=== PATIENT | male | born 1975 | race Caucasian/White ===

== ENCOUNTER 2017-02-13 09:56 | Emergency (ER) | payer BC, OTHER ==
[2017-02-13 10:05] VITALS: BP 141/87
--- NOTE | 2017-02-13 10:40 | UC ---
Dizzy HPI HPI Summary: PT WOKE UP IN USUAL STATE OF HEALTH TODAY. WHILE AT WORK STARTED FEELING LIGHTHEADED AND LIKE HIS HEART WAS RACING. WENT TO [facility] THINKING IT WAS HIS LUNGS. ONCE THERE THEY FOUND HIM TO BE TACHYCARDIC IN THE 120 AND BROUGHT HIM HERE TO . PT DENIES CAFFEINE INTAKE OR UNUSUAL STRESS. SLEPT WELL LAST NIGHT AND HAS HYDRATED WELL THIS MORNING. FEELS FATIGUED. - History Of Current Complaint Chief Complaint: UCGeneralIllness Stated Complaint: LIGHT HEADED Time Seen by Provider: 02/13/17 10:07 Hx Obtained From: Patient Onset/Duration: Sudden Onset, Lasting Hours Timing: Constant Pain Intensity: 0 Pain Scale Used: 0-10 Numeric Character: Lightheaded Aggravating Factor(s): Nothing Alleviating Factor(s): Nothing Associated Signs And Symptoms: Positive: Palpitations. Negative: Nausea, Vomiting, Chest Pain, SOB, Unsteady Gait, Visual Changes - Allergies/Home Medications Allergies/Adverse Reactions: Allergies Allergy/AdvReac Type Severity Reaction Status Date / Time Cat Hair Extract Allergy Eyes Verified 02/13/17 10:05 Itchy/Swollen/Red/Watery Pollen Extract Allergy Eyes Verified 02/13/17 10:05 Itchy/Swollen/Red/Watery Home Medications: Home Medications Albuterol HFA INHALER* [Ventolin HFA Inhaler*] 1 puff INH Q4H PRN 02/13/17 [ History Confirmed 02/13/17] Budesonide/Formote 160/4.5(NF) [Symbicort 160/4.5 (NF)] 2 puff INH BID 02/13/17 [History Confirmed 02/13/17] Levocetirizine Dihydrochloride [Xyzal Allergy 24Hr] 5 mg PO 02/13/17 [History] Mometasone NASAL (NF) [Nasonex (NF)] 1 spray .SEE ORDER 02/13/17 [History] PMH/Surg Hx/FS Hx/Imm Hx - Additional Past Medical History Additional PMH: SLEEP APNEA Respiratory History: Asthma GI/ History: Gastroesophageal Reflux - Surgical History Surgical History: Yes Surgery Procedure, Year, and Place: APPY AT AGE 4 - Family History Known Family History: Positive: Cardiac Disease, Diabetes - Social History Alcohol Use: None Substance Use Type: None Smoking Status (MU): Never Smoked Tobacco Review of Systems Constitutional: Fatigue Respiratory: Negative Cardiovascular: Palpitations Gastrointestinal: Negative All Other Systems Reviewed And Are Negative: Yes Physical Exam Triage Information Reviewed: Yes Appearance: Well-Appearing, No Pain Distress, Well-Nourished Vital Signs: Initial Vital Signs Temp 98.8 F 02/13/17 09:59 Pulse 98 02/13/17 09:59 Resp 18 02/13/17 09:59 BP 141/87 02/13/17 09:59 Pulse Ox 98 02/13/17 09:59 Vital Signs Reviewed: Yes Eyes: Positive: Conjunctiva Clear ENT: Positive: Hearing grossly normal Neck: Positive: Supple Respiratory Exam: Normal Cardiovascular: Positive: Tachycardia Abdomen Description: Positive: Soft Musculoskeletal: Positive: No Edema Neurological: Positive: Alert Psychological: Positive: Age Appropriate Behavior Skin: Negative: rashes Diagnostics - EKG Cardiac Rate: Tachycardia - 109 BPM Cardiac Rhythm: Sinus: Normal Ectopy: PVCs ST Segment: Normal Dizzy Course/Dx - Differential Dx/Diagnosis Provider Diagnoses: TACHYCARDIA/LIGHTHEADED - Physician Notifications Discussed Patient Care With: Gabe Bhagat - TO [facility] [place] [facility] BY AMBULANCE Time Discussed With Above Provider: 10:45 Instructed by Provider To: MD Will See In ED Discharge - Discharge Plan Condition: Stable Disposition: TRANS HIGHER LVL OF CARE FAC Referrals: Rivka Kraft NP [Primary Care Provider] -
== END 2017-02-13 10:45 | disposition short-term general hospital (02) ==
LOC: UCEAST 09:56
DX: R00.0 Tachycardia, unspecified (principal); R42 Dizziness and giddiness; J45.909 Unspecified asthma, uncomplicated; K21.9 Gastro-esophageal reflux disease without esophagitis
CPT/HCPCS: 93005; 99203; G0463

== ENCOUNTER 2017-02-13 10:54 | Emergency (ER) | payer BC, OTHER ==
[2017-02-13] MEDS ORDERED: NS 0.9% 1000 ML* 1,000 ML IV ONE ×3 (11:00→13:58)
--- NOTE | 2017-02-13 11:38 | RAD ---
HISTORY: Palpitation COMPARISONS: None VIEWS: 4: Frontal dual-energy and lateral views of the chest. FINDINGS: CARDIOMEDIASTINAL SILHOUETTE: The cardiomediastinal silhouette is normal. CRISTINA: The cristina are normal. PLEURA: The costophrenic angles are sharp. No pleural abnormalities are noted. LUNG PARENCHYMA: The lungs are clear. ABDOMEN: The upper abdomen is clear. There is no subphrenic gas. BONES AND SOFT TISSUES: No bone or soft tissue abnormalities are noted. OTHER: None. IMPRESSION: NO ACTIVE CARDIOPULMONARY DISEASE.
[2017-02-13 11:44] LABS: Urine Bilirubin Negative (Negative); Urine Glucose Negative (Negative); Urine Nitrite Negative (Negative)
[2017-02-13 11:56] LABS: Hematocrit 48 % (42-52); Hemoglobin 16.4 g/dl (14.0-18.0); Mean Corpuscular HGB Conc 34 g/dl (31-36); Mean Corpuscular Hemoglobin 30 pg (27-31); Mean Corpuscular Volume 88 fL (80-94); Mean Platelet Volume 7 um3 (7.4-10.4); Red Blood Count 5.47 10^6/ul (4.0-5.4); Red Cell Distribution Width 13 % (10.5-15); White Blood Count 12.1 10^3/ul (3.5-10.8)
[2017-02-13 12:09] LABS: Albumin 4.2 g/dL (3.2-5.2); BUN/Creatinine Ratio 10.3 (8-20); EGFR African American 90.1 (>60); EGFR Non-African American 70.1 (>60); Globulin 3.3 g/dL (2-4); Magnesium 2.4 mg/dL (1.9-2.7); Potassium 3.4 mmol/L (3.5-5.0); Total Bilirubin 0.5 mg/dL (0.2-1.0); Total Protein 7.5 g/dL (6.4-8.9)
[2017-02-13] MEDS ORDERED: Hydrocortisone INJ* 100 MG VIAL IV ONE (12:13)
[2017-02-13] MEDS ORDERED: Potassium Chlor TAB* 20 MEQ TAB.ER PO ONE (12:14)
[2017-02-13 12:25] LABS: TSH (Thyroid Stimulating Horm) 1.34 mcIU/mL (0.34-5.60)
[2017-02-13 13:48] VITALS: BP 134/86
--- NOTE | 2017-02-13 14:07 | ECHO ---
Patient: ADRIANE DURAN [facility] Rec#: [id number] : 1975 Date: 02/13/2017 Age: 41y Height: 182.88 cm / 72.0 in Weight: 97.52 kg / 214.9 lbs Sex: M BSA: 2.2 Room#: -16 Admit Date#: 02/13/2017 Type: Inpatient Referring: ZIYAD SEGUNDO MD Reading: Mike Vang MD Furnace Repairer Helper: Kenya Leos RDCS CC: Alexei GRANT,Rivka Transthoracic Echocardiogram Indication: Palpitations, PVC, elevated BNP BP: 142/81 HR: 104 Rhythm: Tachycardia Findings History: Asthma, TAWNY with CPAP. Technical Comments: The study quality is fair. Completed at 1345. Left Ventricle: The left ventricular chamber size is normal. Global left ventricular wall motion and contractility are within normal limits. There is normal left ventricular systolic function. The estimated ejection fraction is 50-55%. There is no consistent Doppler evidence of clinically significant diastolic dysfunction. Left Atrium: The left atrial chamber size is normal. Right Ventricle: Moderator Band present. The right ventricular cavity size is normal.RV measurement 3.0 cm PLAx view. RV appears to be at upper limits of normal in terms of size on A4C view. The right ventricular global systolic function is normal. Right Atrium: The right atrial cavity size is normal. Aortic Valve: The aortic valve is trileaflet. There is no evidence of aortic regurgitation. There is no evidence of aortic stenosis. Mitral Valve: The mitral valve leaflets do not appear thickened. There is a trace of mitral regurgitation. Tricuspid Valve: The tricuspid valve leaflets are normal. There is trace tricuspid regurgitation. Unable to estimate the right ventricular systolic pressure. Pulmonic Valve: The pulmonic valve appears normal. There is no evidence of pulmonic regurgitation. There is no pulmonic stenosis. Pericardium: There is no significant pericardial effusion. A pericardial fat pad is visualized. Aorta: There is no dilatation of the ascending aorta. There is no dilatation of the aortic arch. There is no dilation of the aortic root. Pulmonary Artery: The main pulmonary artery appears normal. Venous: The inferior vena cava appears normal in size. There is less than 50% respiratory change in the inferior vena cava dimension. Conclusions There is normal left ventricular systolic function. The estimated ejection fraction is 50-55%. Global left ventricular wall motion and contractility are within normal limits. Normal cardiac chamber sizes. Functionally benign heart valves. There is no prior echocardiogram available to compare with at this time. Measurements Name Value Normal Range RVIDd (AP) 2D 3 cm (0.9 - 2.6) RAd ISD 4CH 4.8 cm (3.4 - 4.9) RA (A4C)W 4.5 cm (2.9 - 4.6) IVSd (2D) 1.1 cm (0.6 - 1) LVPWd (2D) 1.1 cm (0.6 - 1) LVIDd (2D) 4.4 cm (3.6 - 5.4) LVIDs (2D) 2.7 cm - LV FS (2D) 38 % (25 - 45) Aortic Annulus 2 cm (1.4 - 2.6) Ao root diameter (2D) 2.8 cm (2.1 - 3.5) Ascending Ao 2.7 cm (2.1 - 3.4) Aortic arch 2.2 cm (1.8 - 3.4) LA dimension (AP) 2D 3.8 cm (2.3 - 3.8) LAd ISD 4CH 4.5 cm (2.9 - 5.3) LA ISD 4CH W 3.5 cm (2.5 - 4.5) Name Value Normal Range LA ESV SP 4CH (A/L) 33 ml - LA ESV SP 2CH (A/L) 57 ml - LA ESV BP (A/L) 48 ml - LA ESV BP (A/L) index 22 ml/m2 - LA ESV SP 4CH (MOD) 30 ml - LA ESV SP 2CH (MOD) 55 ml - Name Value Normal Range MV E-wave Vmax 0.56 m/sec - MV deceleration time 127.6 msec - MV A-wave Vmax 0.73 m/sec - MV E:A ratio 0.77 ratio - LV septal e' Vmax 0.08 m/sec - LV lateral e' Vmax 0.11 m/sec - LV E:e' septal ratio 7 ratio - LV E:e' lateral ratio 5.1 ratio - Name Value Normal Range AV Vmax 1.6 m/sec - AV VTI 26.37 cm - AV peak gradient 7.43 mmHg - AV mean gradient 5.28 mmHg - LVOT Vmax 1 m/sec - LVOT VTI 15.01 cm - LVOT peak gradient 4.27 mmHg - LVOT mean gradient 1.98 mmHg - ARNOL Vmax 0.94 m/sec - Name Value Normal Range TR peak gradient 21 mmHg - RAP 8 mmHg - IVC diameter 1.9 cm - Name Value Normal Range PV Vmax 0.94 m/sec - PV peak gradient 3.53 mmHg - VA end-diastolic Vmax 1.16 m/sec -
--- NOTE | 2017-03-09 22:44 | ED ---
Robby Watson Alfonso, scribed for Gabe Bhagat MD on 02/13/17 at 1120 . Dizziness - HPI Summary HPI Summary: Patient is a 41 y.o M BIBA presenting to [facility] for lightheadedness that began at 0830 (2.5 hours ago). Symptoms are aggravated by nothing and alleviated by spontaneous resolution. He reports dizziness, diarrhea (yesterday), and near- syncope. He currently still has palpitations. He denies diaphoresis, SOB, melena , N/V, loss of appetite, vision changes, weakness, and urinary problems. Patient has been on prednisone for a few weeks, which he recently stopped. PMHx of allergies, sleep apnea, and asthma. - History Of Current Complaint Chief Complaint: EDDysrhythmPalp Stated Complaint: LIGHT HEADED Time Seen by Provider: 02/13/17 10:57 Hx Obtained From: Patient Onset/Duration: Still Present - palpitations, Resolved - lightheadedness, dizziness Timing: Hours - 2.5 hours Severity Currently: None Character: Lightheaded, Dizzy Aggravating Factor(s): Nothing Alleviating Factor(s): Other - spontaneous resolution Associated Signs And Symptoms: Positive: Diarrhea - yesterday, Palpitations - Allergies/Home Medications Allergies/Adverse Reactions: Allergies Allergy/AdvReac Type Severity Reaction Status Date / Time Cat Hair Extract Allergy Eyes Verified 02/13/17 10:05 Itchy/Swollen/Red/Watery Pollen Extract Allergy Eyes Verified 02/13/17 10:05 Itchy/Swollen/Red/Watery Home Medications: Home Medications Albuterol inh POWDER (NF) [Proair Respiclick] 1 puff INH Q4HR PRN 02/13/17 [ History Confirmed 02/13/17] LevoCETirizine TAB (NF) [Xyzal TAB (NF)] 5 mg PO DAILY PRN 02/13/17 [History Confirmed 02/13/17] Mometasone NASAL (NF) [Nasonex (NF)] 1 spray BOTH NARES DAILY PRN 02/13/17 [ History Confirmed 02/13/17] Omeprazole CAP* [Prilosec CAP* 20 MG] 20 mg PO DAILY 02/13/17 [History Confirmed 02/13/17] diPHENhydraMINE PO* [Benadryl PO 25 MG TAB*] 25 mg PO DAILY PRN 02/13/17 [ History Confirmed 02/13/17] PMH/Surg Hx/FS Hx/Imm Hx Respiratory History: Reports: Hx Asthma, Hx Seasonal Allergies, Hx Sleep Apnea Opthamlomology History: Denies: Hx Legally Blind EENT History: Denies: Hx Deafness - Surgical History Surgery Procedure, Year, and Place: APPY AT AGE 4 Infectious Disease History: No Infectious Disease History: Denies: Traveled Outside the [place] in Last 30 Days - Family History Known Family History: Positive: Cardiac Disease, Diabetes - Social History Alcohol Use: None Substance Use Type: Reports: None Smoking Status (MU): Never Smoked Tobacco Review of Systems Negative: Skin Diaphoresis Positive: Other - negative: vision changes Positive: Palpitations Negative: Shortness Of Breath Positive: Diarrhea, Other - negative: black tarry stool, loss of appetite. Negative: Vomiting, Nausea Positive: other - negative: urinary problems Neurological: Other - dizziness, lightheadedness Positive: Syncope - near syncope. Negative: Weakness All Other Systems Reviewed And Are Negative: Yes Physical Exam Triage Information Reviewed: Yes Vital Signs On Initial Exam: Initial Vitals Temp Pulse Resp BP Pulse Ox 99.4 F 112 18 140/97 96 02/13/17 10:58 02/13/17 10:58 02/13/17 10:58 02/13/17 10:58 02/13/17 10:58 Vital Signs Reviewed: Yes Appearance: Positive: Well-Appearing, No Pain Distress Skin: Positive: Skin Color Reflects Adequate Perfusion Head/Face: Positive: Normal Head/Face Inspection Eyes: Positive: EOMI ENT: Positive: Normal ENT inspection, Hearing grossly normal, Pharynx normal Neck: Positive: Nontender Respiratory/Lung Sounds: Positive: Clear to Auscultation, Breath Sounds Present Cardiovascular: Positive: RRR. Negative: Murmur Abdomen Description: Positive: Nontender Musculoskeletal: Positive: Strength/ROM Intact. Negative: Edema Left, Edema Right Neurological: Positive: Sensory/Motor Intact, Alert, Oriented to Person Place, Time, CN Intact II-III, Normal Gait, Speech Normal Psychiatric: Positive: Normal - Raul Coma Scale Best Eye Response: 4 - Spontaneous Best Motor Response: 6 - Obeys Commands Best Verbal Response: 5 - Oriented Diagnostics - Vital Signs Vital Signs Temp Pulse Resp BP Pulse Ox 02/13/17 10:58 99.4 F 112 18 140/97 96 - Laboratory Result Diagrams: 02/13/17 11:29 02/13/17 11:29 Lab Statement: Any lab studies that have been ordered have been reviewed, and results considered in the medical decision making process. - Radiology CXR Xray Interpretation: No Acute Changes Radiology Interpretation Completed By: Radiologist - No active cardiopulmonary disease. ED physician reviewed report and agrees. - EKG 1105 Cardiac Rate: Tachycardia - 111 bpm EKG Rhythm: Sinus Tachycardia Ectopy: PVCs - occassionally - Additional Comments Diagnostic Additional Comments: Per Dr. Vang, Transthoracic Echocardiogram reveals: There is normal left ventricular systolic function. The estimated ejection fraction is 50-55%. Global left ventricular wall motion and contractility are within normal limits. Normal cardiac chamber sizes. Functionally benign heart valves. There is no prior echocardiogram available to compare with at this time. ED physician reviewed report and agrees. Re-Evaluation - Re-Evaluation First Eval Re-Evaluation Time: 12:59 Comment: Currently receiving echo. Patient is comfortable. Second Eval Re-Evaluation Time: 14:37 Comment: Reviewed lab results with patient. Third Eval Re-Evaluation Time: 14:51 Change: Improved Comment: 41 yr old male who after hydration 3 liters of NS feels much better. HR when stands now is in low 100s and he is not going up to 150 any more. He has used the bathroom three times urinating. He has no more palpitations. He has a normal echo. I will send the patient home to follow up with his PMD. He had caffeine this morning and was told by his allergy doctor not to use caffeine when he was on his prednisone, and was tapering off his dose the past month. He believes he had regular coffee this morning by mistake. Dizzy Course/Dx - Course Course Of Treatment: 41 yr old with normal echo and comfortable after hydration and potassium. DC to home. DC caffeine use. FU with PMD. - Diagnoses Provider Diagnoses: Palpitations Discharge - Discharge Plan Condition: Good Disposition: HOME Patient Education Materials: Palpitations (ED), Caffeine Use (ED), Dehydration (ED) Referrals: Rivka Kraft, MID WIFE [Primary Care Provider] - The documentation as recorded by the Robby chandler Alfonso accurately reflects the service I personally performed and the decisions made by me, Gabe Bhagat MD.
== END 2017-02-13 15:37 | disposition home or self-care (01) ==
LOC: ED 10:54
DX: R00.2 Palpitations (principal); R19.7 Diarrhea, unspecified; R55 Syncope and collapse
CPT/HCPCS: 36415; 71020; 80053; 81003; 83605; 83735; 83880; 84443; 84484; 85025; 85379; 85730; 93005; 93306; 96361; 96374; 99282; A9270-GY

== ENCOUNTER 2018-01-01 06:03 | Emergency (ER) | payer BC ==
--- NOTE | 2018-01-01 06:39 | ED ---
Dizziness - HPI Summary HPI Summary: 42 y.o. male presents w/ "feeling lightheaded at work" 1 hour ago. Noticed while sitting in his chair while typing. Lasted "just a moment" and felt faint/ nauseous during the episode w/ blurred vision. Gilman palpitations but no CP nor SOB. Has had 2 episodes of this in the past but this was more abrupt and lightheadedness worse today. Denies JOHN, weakness, floaters or diploplia, confusion, fever, chills, neck stiffness, ab pain, vomiting, diarrhea, rash/ skin changes. Has had URI sx for 1 week along w/ asthma exacerbation - rhinorrhea, ST, productive cough. Was given prednisone for asthma exacerbation - doing better since (ie. no wheezing, breathing easier, etc). Sick contacts - w/ syncopal episode 1 week ago - had w/u w/o known findings. Kids have Coxsackie virus. - History Of Current Complaint Chief Complaint: EDDizziness Stated Complaint: GENERAL Time Seen by Provider: 01/01/18 06:16 Hx Obtained From: Patient - Allergies/Home Medications Allergies/Adverse Reactions: Allergies Allergy/AdvReac Type Severity Reaction Status Date / Time environmental Allergy Eyes Uncoded 01/01/18 07:20 Itchy/Swollen/Red/Watery Home Medications: Home Medications Cyclobenzaprine TAB* [Flexeril 10 MG TAB*] 10 mg PO TID 01/01/18 [History Confirmed 01/01/18] PMH/Surg Hx/FS Hx/Imm Hx Previously Healthy: No - URI x 1 week Endocrine/Hematology History: Denies: Hx Anticoagulant Therapy, Hx Blood Disorders, Hx Diabetes, Hx Thyroid Disease, Autoimmune Disease Cardiovascular History: Denies: Hx Atrial Fibrillation, Hx Hypertension Respiratory History: Reports: Hx Asthma - on multiple meds, Hx Seasonal Allergies, Hx Sleep Apnea Sensory History: Denies: Hx Legally Blind, Hx Deafness Opthamlomology History: Denies: Hx Legally Blind - Surgical History Surgery Procedure, Year, and Place: APPY AT AGE 4 - Immunization History Immunizations Up to Date: Yes Infectious Disease History: No Infectious Disease History: Denies: Traveled Outside the [place] in Last 30 Days - Family History Known Family History: Positive: Cardiac Disease, Diabetes - Social History Occupation: Employed Full-time - [place]: With Family Alcohol Use: None Hx Substance Use: No Substance Use Type: Reports: None Hx Tobacco Use: No Smoking Status (MU): Never Smoked Tobacco Review of Systems Constitutional: Negative Negative: Fever, Chills, Fatigue Eyes: Negative ENT: Other - URI Cardiovascular: Negative Negative: Palpitations, Chest Pain Positive: Cough - URI/asthma. Negative: Shortness Of Breath Gastrointestinal: Negative Genitourinary: Negative Musculoskeletal: Negative Skin: Negative Neurological: Other - dizziness Negative: Headache Psychological: Normal All Other Systems Reviewed And Are Negative: Yes Physical Exam Triage Information Reviewed: Yes Vital Signs On Initial Exam: Initial Vitals Temp Pulse Resp BP Pulse Ox 98.3 F 95 18 134/95 98 01/01/18 06:04 01/01/18 06:04 01/01/18 06:04 01/01/18 06:04 01/01/18 06:04 Vital Signs Reviewed: Yes Appearance: Positive: Well-Appearing, No Pain Distress, Well-Nourished Skin: Positive: Warm, Skin Color Reflects Adequate Perfusion, Dry - no rash Head/Face: Positive: Normal Head/Face Inspection - atraumatic Eyes: Positive: Normal, EOMI, BRANDI - no photophobia, Conjunctiva Clear. Negative: Conjunctiva Inflammed, Discharge ENT: Positive: Normal ENT inspection, Hearing grossly normal, Pharynx normal, TMs normal, Uvula midline. Negative: Nasal congestion, Tonsillar swelling, Tonsillar exudate, Trismus, Muffled voice, Sinus tenderness Dental: Negative: Abscess @ Neck: Positive: Supple, Nontender, No Lymphadenopathy Respiratory/Lung Sounds: Positive: Clear to Auscultation, Breath Sounds Present. Negative: Rales, Rhonchi, Wheezes Cardiovascular: Positive: RRR, Pulses are Symmetrical in both Upper and Lower Extremities, Other - rare, intermittent irregular beat (PVC?) - no a. fib auscultated nor identified on ECG, S1, S2. Negative: Murmur, Rub, Leg Edema Left, Leg Edema Right Abdomen Description: Positive: Nontender, No Organomegaly, Soft Bowel Sounds: Positive: Present Musculoskeletal: Positive: Normal, Strength/ROM Intact Neurological: Positive: Normal, Sensory/Motor Intact, Alert, Oriented to Person Place, Time, CN Intact II-III, Facial Symmetry, Speech Normal. Negative: [place]- [place] Test Psychiatric: Positive: Normal Diagnostics - Vital Signs Vital Signs Temp Pulse Resp BP Pulse Ox 01/01/18 06:04 98.3 F 95 18 134/95 98 - Laboratory Result Diagrams: 01/01/18 07:46 01/01/18 07:46 Lab Statement: Any lab studies that have been ordered have been reviewed, and results considered in the medical decision making process. Dizzy Course/Dx - Course Course Of Treatment: ECG 91 bpm, NSR and no ST elevations or blocks. Definitive cause was not identified today however pt has recently had a URI w/ asthma exacerbation and tx'd w/ steroids which can cause these side effects. Additionally, he had a few irregular beats here but normal ECG and asx while here. Cardio/pulm/neuro tests neg otherwise. Will d/c and refer back to PCP for close f/u. Danger s/sx of when to f/u reviewed w/ pt who agrees w/ plan. - Diagnoses Provider Diagnoses: Dizziness Discharge - Sign-Out/Discharge Documenting (check all that apply): Patient Departure - Discharge Plan Condition: Stable Disposition: HOME Patient Education Materials: Heart Palpitations (ED) Forms: *Work Release Referrals: Rivka Kraft NP [Primary Care Provider] - Additional Instructions: You do not appear to have any acute cardiac pathology here today however it is important that you follow-up with your PCP and public finance specialist for further workup outpatient. You may benefit from a Holter monitor in the near future (ie. today or tomorrow). Call your PCP to discuss this today. In the meantime, avoid stimulants, stay hydrated and rest. *If you develop symptoms of visual change, headache, chest pain, shortness of breath, arm or jaw pain, syncope or near syncope, return to the emergency department. - Billing Disposition and Condition Condition: STABLE Disposition: Home
--- OUTSIDE RECORDS SUMMARY | 2018-01-01 06:46 | XMS REPORT ---
:1975 External Reference #:[id number] Author Organization [facility] Address [address], [address] [place] [address] Phone [phone] Care Team Providers Name Role Phone Kandi Mcdonnell M.D. Care Team Information Blog Writer Unavailable Kandi Mcdonnell M.D. Primary Care Physician Unavailable Payers Type Date Identification Numbers Payment Provider Subscriber Commercial Policy Number: [id number] [facility] Erickson Zaldivar PayID: [id number] [address] [place] [address] Problems Date Description Provider Status Onset: 09/19/2015 Allergic rhinitis Kandi Mcdonnell M.D. Active Onset: 09/19/2015 Gastroesophageal reflux disease Kandi Mcdonnell M.D. Active Onset: 09/19/2015 Diverticular disease of colon Kandi Mcdonnell M.D. Active Onset: 12/19/2015 Sleep apnea Kandi Mcdonnell M.D. Active Onset: 02/06/2017 Asthma MARIANGEL Serrano Active Family History Date Family Member(s) Problem(s) Comments : (age 48 Years) Father due to Motor Vehicle Accident Mother Diverticulosis Mother Diverticulitis Social History Type Date Description Comments ETOH Use Denies alcohol use Smoking Patient has never smoked Allergies, Adverse Reactions, Alerts Date Description Reaction Status Severity Comments 09/19/2015 NKDA active Medications Medication Date Status Form Strength Qnty SIG Indications Ordering Provider Cyclobenzaprine 06/09 Active Tablets 5mg 30tab 1-2 tabs M54.5 Kandi MUNSON /2017 s by mouth Jack Mcdonnell every night at bedtime Levocetirizine Active Tablets 5mg 1 by mouth Unknown Dihydrochloride / every day Symbicort Active Aerosol 160-4.5mc 2 puff Unknown /0000 g/Act twice a day Proair HFA Active Aerosol 108(90Bas 1 puff Unknown /0000 e) every 4 mcg/Act hours as needed Nasonex Active Suspension 50mcg/Act 2 sprays Unknown each nostril every day Prilosec Active Capsules DR 40mg 1 tab PO Q Unknown daily prn Ondansetron 03/27 Hx Tablets 4mg 30tab 1 by mouth Dispers s every 6-8 Jack Mcdonnell - hour as 05/04 Hydrocodone-Aceta Hx Tablets 5-325mg 14tab take 1-2 N20.2 Kandi minophen / s tablets by Jack Mcdonnell - mouth 04/21 every hours as needed for pain Reference #: [id number] Sulfamethoxazole/ Hx Tablets 800-160mg 60tab 1 tab PO Kandi Trimethoprim s bid Jack Mcdonnell - 06/09 Azithromycin Hx Tablets 250mg Unknown / - 05/01 Benzonatate Hx Capsules 100mg Unknown /0000 - 04/29 Ibuprofen Hx Tablets 400mg Unknown /0000 - 04/28 Prednisone Hx Tablets 20mg Take 2 Unknown 0000 Tablets By - Mouth 12/30 For 5 Days Immunizations CPT Code Status Date Vaccine Lot # [id number] Given 02/06/2017 Pneumovax Injection [id number] Given 02/06/2017 Influenza Virus Vaccine, Quadrivalent, Slit Virus, [id number] Im Use [id number] Given 06/03/2016 Influenza Virus Vaccine Split Virus Use For [id number] Individual 3Yr Older Vital Signs Date Vital Result Comment 12/30/2017 BP Systolic Sitting Left Arm 124 mmHg BP Diastolic Sitting Left Arm 74 mmHg Body Temperature 96.4 F Heart Rate 72 /min Height 72 inches 6'0" Weight 201.50 lb BMI (Body Mass Index) 27.3 kg/m2 BSA (Body Surface Area) 2.14 m2 [place] body weight in kilograms 81 06/09/2017 BP Systolic Sitting Left Arm 106 mmHg BP Diastolic Sitting Left Arm 60 mmHg Height 72 inches 6'0" Weight 205.50 lb BMI (Body Mass Index) 27.9 kg/m2 BSA (Body Surface Area) 2.16 m2 [place] body weight in kilograms 81 05/04/2017 BP Systolic Sitting Left Arm 138 mmHg BP Diastolic Sitting Left Arm 72 mmHg Body Temperature 98.2 F Heart Rate 92 /min Height 72 inches 6'0" Weight 207.12 lb BMI (Body Mass Index) 28.1 kg/m2 BSA (Body Surface Area) 2.16 m2 [place] body weight in kilograms 81 04/21/2017 BP Systolic Sitting Left Arm 124 mmHg BP Diastolic Sitting Left Arm 72 mmHg Body Temperature 97.2 F Height 72 inches 6'0" Weight 210.00 lb BMI (Body Mass Index) 28.5 kg/m2 BSA (Body Surface Area) 2.18 m2 [place] body weight in kilograms 81 03/26/2017 BP Systolic Sitting Left Arm 126 mmHg BP Diastolic Sitting Left Arm 78 mmHg Height 72 inches 6'0" Weight 211.00 lb BMI (Body Mass Index) 28.6 kg/m2 BSA (Body Surface Area) 2.18 m2 [place] body weight in kilograms 81 03/13/2017 BP Systolic Sitting Left Arm 124 mmHg BP Diastolic Sitting Left Arm 78 mmHg Heart Rate 78 /min Respiratory Rate 18 /min Height 72 inches 6'0" Weight 213.00 lb BMI (Body Mass Index) 28.9 kg/m2 BSA (Body Surface Area) 2.19 m2 [place] body weight in kilograms 81 02/06/2017 BP Systolic Sitting Left Arm 126 mmHg BP Diastolic Sitting Left Arm 74 mmHg Body Temperature 98.2 F Heart Rate 70 /min Respiratory Rate 20 /min Height 72 inches 6'0" Weight 213.00 lb BMI (Body Mass Index) 28.9 kg/m2 BSA (Body Surface Area) 2.19 m2 [place] body weight in kilograms 81 09/11/2016 BP Systolic Sitting Right Arm 130 mmHg BP Diastolic Sitting Right Arm 88 mmHg Heart Rate 66 /min Height 72 inches 6'0" Weight 202.12 lb BMI (Body Mass Index) 27.4 kg/m2 BSA (Body Surface Area) 2.14 m2 06/03/2016 BP Systolic Sitting Left Arm 130 mmHg BP Diastolic Sitting Left Arm 80 mmHg Heart Rate 76 /min Respiratory Rate 16 /min Height 72 inches 6'0" Weight 202.00 lb BMI (Body Mass Index) 27.4 kg/m2 BSA (Body Surface Area) 2.14 m2 [place] body weight in kilograms 81 09/19/2015 BP Systolic 140 mmHg BP Diastolic 82 mmHg Height 72 inches 6'0" Weight 203.00 lb BMI (Body Mass Index) 27.5 kg/m2 BSA (Body Surface Area) 2.14 m2 Results Test Date Test Result H/L Range Note Urine Culture 05/04/2017 Urine Culture NO GROWTH: FINAL <SEE NOTE> 1, 2 Urine Culture 04/21/2017 Urine Culture NO GROWTH: FINAL <SEE NOTE> 1, 3 1 R35.0 2 NO GROWTH: FINAL REPORT 3 NO GROWTH: FINAL REPORT Procedures Date CPT Code Description Status Comment 05/18/[address] Tellez in [place], normal screening at 52 Encounters Type Date Location Provider CPT E/M Dx Office Visit 12/30/2017 Family Medicine Kandi Mcdonnell M.D. 93257 R00.0 9:30a Office Visit 06/09/2017 Family Medicine Kandi Mcdonnell M.D. 19893 M54.5 2:45p Office Visit 05/04/2017 Family Medicine COLLIN Lui 00289 R35.0 2:45p Office Visit 04/21/2017 Family Mathew Mcdonnell M.D. 56119 R35.0 1:30p Office Visit 03/26/2017 Family Mathew Mcdonnell M.D. 85554 N20.2 2:45p Office Visit 03/13/2017 Family Mathew Mcdonnell M.D. 26427 R00.0 1:30p Office Visit 02/06/2017 Family [facility] MARIANGEL Serrano 34874 M70.21 1:30p J45.30 Z23 Office Visit 09/11/2016 8:45a Family Mathew Mcdonnell M.D. 16462 L60.8 Office Visit 06/03/2016 1:45p Family [facility] MARIANGEL Serrano 61095 N20.0 Z23 Office Visit 09/19/2015 9:30a Family Medicine Kandi Mcdonnell M.D. 31223 G56.02 R06.83 J30.2 K57.90 Plan of Care 12/30/2017 - Kandi Mcdonnell M.D.R00.0 Tachycardia, unspecifiedComments:2nd episode of tachycardia and episode was prolongedreviewed EKG and labs from urgent care, no concernswill refer to cardiologyReferral:Felix Rivas MD, Cardiology/Phys/ Osteo
--- OUTSIDE RECORDS SUMMARY | 2018-01-01 06:46 | XMS REPORT ---
:1975 External Reference #:[id number] Author Organization [facility] Address [address] [place] [address] Phone [phone] Care Team Providers Name Role Phone Juno Rivas MD Care Team Information Mine Engineering Manager Unavailable Kandi Mcdonnell M.D. Primary Care Physician Unavailable Payers Type Date Identification Numbers Payment Provider Subscriber Commercial Policy Number: [id number] [facility] [place] Plan Erickson Zaldivar PayID: [id number] [address] [place] [address] Problems Date Description Provider Status Onset: 11/26/2017 Asthma without status asthmaticus COLLIN Bass Active Onset: 09/18/2017 Acute sinusitis Uma Araujo NP Active Onset: 01/21/2017 Exacerbation of moderate Estephania S. Fenstermacher, Active persistent asthma RPA-C Onset: 10/17/2016 Uncomplicated moderate persistent Estephania S. 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 Fenstermacher, Active RPA-C Onset: 06/01/2015 Mild intermittent asthma, Estephania S. Fenstermacher, Active uncomplicated RPA-C Onset: 06/01/2015 Exercise-induced asthma Estephania S. Fenstermacher, Active RPA-C Onset: 06/01/2015 Allergic rhinitis Estephania S. Fenstermacher, Active RPA-C Onset: 06/01/2015 Allergic rhinitis due to pollen Estephania S. Fenstermacher, Active RPA-C Family History Date Family Member(s) Problem(s) Comments General Unknown Social History Type Date Description Comments Smoke-Free Home is smoke-free Pets None Smoking Patient has never smoked Allergies, Adverse Reactions, Alerts Date Description Reaction Status Severity Comments 03/15/2014 NKDA active Medications Medication Date Status Form Strength Qnty SIG Indications Ordering Provider Epipen 2-Micheal 03/03 Active Solution 0.3mg/0.3 2unit use as T80.59xA Auto-Injec ML s directed Shane Rivas MD t as needed for anaphylax is. Ventolin HFA 06/01 Active Aerosol 108(90Bas 1inha 2 puffs e) ler every 4 [facility]- mcg/Act hours as needed. Levocetirizine 04/05 Active Tablets 5mg 30tab Take One Dihydrochloride s Tablet By Shane Rivas MD Mouth Every Evening Nasonex 03/15 Active Suspension 50mcg/Act 1unit [place] 2 Uma Paul s sprays in SHOE WORKER each nostril by intranasa l route once daily Symbicort 03/15 Active Aerosol 160-4.5mc 10.2u Two Puffs g/Act nits Twice A [facility]-C Day Prilosec OTC Active Tablets DR 20mg take 1 Unknown /0000 tablet by oral route daily as needed Albuterol Active Nebulizer (2.5mg/3M Unknown Sulfate /0000 L) 0.083% Hydrocodone-Acet Active Tablets 5-325mg Kandi Mcdonnell, aminophen /0000 M.D. Cyclobenzaprine Active Tablets 5mg Kandi Mcdonnell, HCL /0000 M.D. Clarithromycin 09/18 Hx Tablets 500mg 20tab 1 tabs by Uma s mouth RUDY Araujo - twice a /2017 Prednisone 09/18 Hx Tablets 20mg 10tab take one s tablet RUDY Araujo - twice 11/16 daily x days Prednisone 01/21 Hx Tablets 5mg 100ta Follow J45.41 bs taper as Shane Rivas MD - directed 01/17 Nystatin 08/05 Hx Suspension [id number] 150ml Swish and t/ML swallow Shane Rivas MD - 5mL po 4x 03/03 daily x days. Retain in mouth as long as possible before swallowin g. Prednisone Hx Tablets 20mg 1 tabs by mouth - once 10/16 daily 10 days as of Prednisone 00 Hx Tablets 20mg Unknown /0000 - 01/21 Sulfamethoxazole Hx Tablets 800-160mg Kandi Mcdonnell, /Trimethoprim M.DFritz - 09/15 Medications Administered in Office Medication Date Status Form Strength Qnty SIG Indications Ordering Provider Allergy 11/26/ Administered Injection Christopher Injection 2 2017 Shane Rivas MD Or More Allergy 10/15/ Administered Injection Christopher Injection 2 2017 Shane Rivas MD Or More Allergy 09/04/ Administered Injection Christopher Injection 2 2017 Shane Rivas MD Or More Allergy 08/07/ Administered Injection Christopher Injection 2 2017 Shane Rivas MD Or More Allergy 07/10/ Administered Injection Christopher Injection 2 2017 Shane Rivas MD Or More Allergy 06/26/ Administered Injection Christopher Injection 2 2017 Shane Rivas MD Or More Allergy 06/12/ Administered Injection Christopher Injection 2 2017 Shane Rivas MD Or More Allergy 05/29/ Administered Injection Christopher Injection 2 2017 Shane Rivas MD Or More Allergy 05/04/ Administered Injection Christopher Injection 2 2016 Shane Rivas MD Or More Allergy 04/03/ Administered Injection Christopher Injection 2 2016 Shane Rivas MD Or More Allergy 02/20/ Administered Injection Christopher Injection 2 2016 Shane Rivas MD Or More Allergy 02/06/ Administered Injection Christopher Injection 2 2016 Shane Rivas MD Or More Allergy 01/09/ Administered Injection Christopher Injection 2 2016 Shane Rivas MD Or More Allergy 12/26/ Administered Injection Christopher Injection 2 2016 Shane Rivas MD Or More Allergy 12/05/ Administered Injection Christopher Injection 2 2016 Shane Rivas MD Or More Allergy 11/21/ Administered Injection Christopher Injection 2 2016 Shane Rivas MD Or More Allergy 11/07/ Administered Injection Christopher Injection 2 2016 Shane Rivas MD Or More Allergy 10/17/ Administered Injection Christopher Injection 2 2016 Shane Rivas MD Or More Allergy 10/03/ Administered Injection Christopher Injection 2 2016 Shane Rivas MD Or More Allergy // Administered Injection Christopher Injection 2 2016 Shane Rivas MD Or More Allergy 09/05/ Administered Injection Christopher Injection 2 2016 Shane Rivas MD Or More Allergy // Administered Injection Christopher Injection 2 2016 Shane Rivas MD Or More Allergy 08/15/ Administered Injection Christopher Injection 2 2016 Shane Rivas MD Or More Allergy 08/04/ Administered Injection Christopher Injection 2 2016 Shane Rivas MD Or More Allergy // Administered Injection Christopher Injection 2 2016 Shane Rivas MD Or More Allergy 07/09/ Administered Injection Christopher Injection 2 2016 Shane Rivas MD Or More Allergy 06/20/ Administered Injection Christopher Injection 2 2016 Shane Rivas MD Or More Allergy 05/23/ Administered Injection Christopher Injection 2 2016 Shane Rivas MD Or More Allergy 05/05/ Administered Injection Christopher Injection 2 2015 Shane Rivas MD Or More Allergy 04/18/ Administered Injection Christopher Injection 2 2015 Shane Rivas MD Or More Allergy 03/12/ Administered Injection Christopher Injection 2 2015 Shane Rivas MD Or More Allergy 02/28/ Administered Injection Christopher Injection 2 2015 Shane Rivas MD Or More Allergy 02/14/ Administered Injection Christopher Injection 2 2015 Shane Rivas MD Or More Allergy 01/29/ Administered Injection Christopher Injection 2 2015 Shane Rivas MD Or More Allergy 01/17/ Administered Injection Christopher Injection 2 2015 Shane Rivas MD Or More Allergy 01/03/ Administered Injection Christopher Injection 2 2015 Shane Rivas MD Or More Allergy // Administered Injection Christopher Injection 2 2015 Shane Rivas MD Or More Allergy 12/06/ Administered Injection Christopher Injection 2 2015 Shane Rivas MD Or More Allergy 11/15/ Administered Injection Christopher Injection 2 2015 Shane Rivas MD Or More Allergy 11/01/ Administered Injection Christopher Injection 2 2015 Shane Rivas MD Or More Allergy 10/18/ Administered Injection Christopher Injection 2 2015 Shane Rivas MD Or More Allergy 10/04/ Administered Injection Christopher Injection 2 2015 Shane Rivas MD Or More Allergy // Administered Injection Christopher Injection 2 2015 Shane Rivas MD Or More Allergy 08/30/ Administered Injection Christopher Injection 2 2015 Shane Rivas MD Or More Allergy 08/16/ Administered Injection Christopher Injection 2 2015 Shane Rivas MD Or More Allergy 07/26/ Administered Injection Christopher Injection 2 2015 Shane Rivas MD Or More Allergy 07/13/ Administered Injection Christopher Injection 2 2015 Shane Rivas MD Or More Allergy 06/15/ Administered Injection Christopher Injection 2 2015 Shane Rivas MD Or More Allergy 06/01/ Administered Injection Christopher Injection 2 2015 Shane Rivas MD Or More Allergy 05/25/ Administered Injection Christopher Injection 2 2015 Shane Rivas MD Or More Allergy 05/16/ Administered Injection Christopher Injection 2 2014 Shane Rivas MD Or More Allergy 05/07/ Administered Injection Christopher Injection 2 2014 Shane Rivas MD Or More Allergy 05/04/ Administered Injection Christopher Injection 2 2014 Shane Rivas MD Or More Allergy 04/16/ Administered Injection Christopher Injection 2 2014 Shane Rivas MD Or More Allergy 04/11/ Administered Injection Christopher Injection 2 2014 Shane Rivas MD Or More Allergy 04/06/ Administered Injection Christopher Injection 2 2014 Shane Rivas MD Or More Allergy 03/30/ Administered Injection Christopher Injection 2 2014 Shane Rivas MD Or More Allergy 03/23/ Administered Injection Christopher Injection 2 2014 Shane Rivas MD Or More Allergy 03/16/ Administered Injection Christopher Injection 2 2014 Shane Rivas MD Or More Vital Signs Date Vital Result Comment 12/31/2017 BP Systolic 110 mmHg BP Diastolic 82 mmHg Height 72 inches 6'0" Weight 200.00 lb BMI (Body Mass Index) 27.1 kg/m2 Heart Rate 95 /min Respiratory Rate 18 /min Body Temperature 98.1 F O2 % BldC Oximetry 97 % 11/26/2017 BP Systolic 126 mmHg BP Diastolic 76 mmHg Height 72 inches 6'0" Weight 205.00 lb BMI (Body Mass Index) 27.8 kg/m2 Heart Rate 84 /min Respiratory Rate 16 /min Body Temperature 98.5 F O2 % BldC Oximetry 95 % 09/18/2017 BP Systolic 126 mmHg BP Diastolic 78 mmHg Height 72 inches 6'0" Weight 205.00 lb BMI (Body Mass Index) 27.8 kg/m2 Heart Rate 95 /min Respiratory Rate 16 /min Body Temperature 97.8 F O2 % BldC Oximetry 96 % 05/04/2017 Height 72 inches 6'0" Weight 208.00 lb BMI (Body Mass Index) 28.2 kg/m2 Heart Rate 102 /min Respiratory Rate 16 /min Body Temperature 86.7 F O2 % BldC Oximetry 95 % 02/13/2017 BP Systolic 128 mmHg BP Diastolic 76 mmHg Height 72 inches 6'0" Weight 208.00 lb BMI (Body Mass Index) 28.2 kg/m2 Heart Rate 120 /min Respiratory Rate 16 /min O2 % BldC Oximetry 98 % 02/06/2017 Height 72 inches 6'0" Weight 208.00 lb BMI (Body Mass Index) 28.2 kg/m2 Heart Rate 97 /min Respiratory Rate 16 /min Body Temperature 98.4 F O2 % BldC Oximetry 98 % 01/21/2017 Height 72 inches 6'0" Weight 208.00 lb BMI (Body Mass Index) 28.2 kg/m2 Heart Rate 100 /min Respiratory Rate 16 /min O2 % BldC Oximetry 96 % 10/17/2016 BP Systolic 118 mmHg BP Diastolic 72 mmHg Height 72 inches 6'0" Weight 208.00 lb BMI (Body Mass Index) 28.2 kg/m2 Heart Rate 97 /min Respiratory Rate 16 /min Body Temperature 95.6 F O2 % BldC Oximetry 97 % 03/03/2016 BP Systolic 128 mmHg BP Diastolic 90 mmHg Height 72 inches 6'0" Weight 211.00 lb BMI (Body Mass Index) 28.6 kg/m2 Heart Rate 92 /min Respiratory Rate 12 /min Body Temperature 97.8 F O2 % BldC Oximetry 96 % 06/01/2015 BP Systolic 110 mmHg BP Diastolic 80 mmHg Height 72 inches 6'0" Weight 210.00 lb BMI (Body Mass Index) 28.5 kg/m2 Heart Rate 72 /min Respiratory Rate 12 /min 11/03/2014 BP Systolic 128 mmHg BP Diastolic 90 mmHg Height 72 inches Weight 200.00 lb Heart Rate 88 /min 10/26/2014 BP Systolic 125 mmHg BP Diastolic 88 mmHg Height 72 inches Weight 200.00 lb Heart Rate 105 /min 04/07/2014 BP Systolic 112 mmHg BP Diastolic 78 mmHg Heart Rate 72 /min 03/15/2014 BP Systolic 138 mmHg BP Diastolic 87 mmHg Height 72 inches Weight 200.00 lb Heart Rate 84 /min Results Test Date Test Result H/L Range Note Order 03/03/2016 Epinephrine Injector Training <pending> Procedures Date CPT Code Description Status 11/26/2017 44652 Allergy Injection 2 Or More Completed 11/26/2017 77464 Nitric Oxide Gas Determination Completed 11/26/2017 34721 Nitric Oxide Gas Determination Completed 11/26/2017 78723 Bronchodilation Responsiveness Spirometry Pre/Post Completed Bronchodil Adm 11/26/2017 95195 Bronchodilation Responsiveness Spirometry Pre/Post Completed Bronchodil Adm 10/15/2017 93239 Allergy Injection 2 Or More Completed 09/10/2017 47515 Allergy Antigens Single Or Multiple Completed 09/04/2017 25859 Allergy Injection 2 Or More Completed 08/07/2017 71843 Allergy Injection 2 Or More Completed 07/10/2017 41574 Allergy Injection 2 Or More Completed 06/26/2017 05766 Allergy Injection 2 Or More Completed 06/12/2017 63482 Allergy Injection 2 Or More Completed 05/29/2017 84315 Allergy Injection 2 Or More Completed 05/04/2017 54927 Allergy Injection 2 Or More Completed 05/04/2017 75458 Nitric Oxide Gas Determination Completed 05/04/2017 10862 Nitric Oxide Gas Determination Completed 05/04/2017 82712 Bronchodilation Responsiveness Spirometry Pre/Post Completed Bronchodil Adm 05/04/2017 27959 Bronchodilation Responsiveness Spirometry Pre/Post Completed Bronchodil Adm 04/03/2017 93213 Allergy Injection 2 Or More Completed 02/20/2017 75279 Allergy Injection 2 Or More Completed 02/06/2017 00151 Allergy Injection 2 Or More Completed 02/06/2017 34367 Nitric Oxide Gas Determination Completed 01/21/2017 36740 Nitric Oxide Gas Determination Completed 01/09/2017 52367 Allergy Injection 2 Or More Completed 12/26/2016 72999 Allergy Injection 2 Or More Completed 12/05/2016 65911 Allergy Injection 2 Or More Completed 11/21/2016 78627 Allergy Injection 2 Or More Completed 11/07/2016 39011 Allergy Injection 2 Or More Completed 10/22/2016 77511 Allergy Antigens Single Or Multiple Completed 10/17/2016 32345 Allergy Injection 2 Or More Completed 10/17/2016 03334 Nitric Oxide Gas Determination Completed 10/17/2016 36932 Bronchodilation Responsiveness Spirometry Pre/Post Completed Bronchodil Adm 10/03/2016 95184 Allergy Injection 2 Or More Completed 09/19/2016 13712 Allergy Injection 2 Or More Completed 09/05/2016 70332 Allergy Injection 2 Or More Completed 08/20/2016 13623 Allergy Injection 2 Or More Completed 08/15/2016 78315 Allergy Injection 2 Or More Completed 08/04/2016 14241 Allergy Injection 2 Or More Completed 07/21/2016 28672 Allergy Injection 2 Or More Completed 07/09/2016 85137 Allergy Injection 2 Or More Completed 06/20/2016 68585 Allergy Injection 2 Or More Completed 05/23/2016 38803 Allergy Injection 2 Or More Completed 05/05/2016 10576 Allergy Injection 2 Or More Completed 04/18/2016 90881 Allergy Injection 2 Or More Completed 03/12/2016 54758 Allergy Injection 2 Or More Completed 03/03/2016 65077 Education/Training PT Self-Management Each 30Minutes Completed Indiv PT 02/29/2016 89427 Allergy Injection 2 Or More Completed 02/15/2016 27704 Allergy Injection 2 Or More Completed 01/30/2016 83050 Allergy Injection 2 Or More Completed 01/18/2016 02656 Allergy Injection 2 Or More Completed 01/04/2016 96554 Allergy Injection 2 Or More Completed 12/21/2015 04000 Allergy Injection 2 Or More Completed 12/07/2015 51571 Allergy Injection 2 Or More Completed 11/16/2015 39076 Allergy Injection 2 Or More Completed 11/02/2015 32541 Allergy Injection 2 Or More Completed 10/19/2015 90185 Allergy Injection 2 Or More Completed 10/16/2015 02009 Allergy Antigens Single Or Multiple Completed 10/05/2015 25952 Allergy Injection 2 Or More Completed 09/21/2015 44497 Allergy Injection 2 Or More Completed 08/31/2015 93568 Allergy Injection 2 Or More Completed 08/17/2015 03058 Allergy Injection 2 Or More Completed 07/27/2015 17313 Allergy Injection 2 Or More Completed 07/13/2015 89450 Allergy Injection 2 Or More Completed 06/15/2015 57410 Allergy Injection 2 Or More Completed 06/01/2015 46670 Allergy Injection 2 Or More Completed 06/01/2015 92127 Bronchodilation Responsiveness Spirometry Pre/Post Completed Bronchodil Adm 05/25/2015 67680 Allergy Injection 2 Or More Completed 05/16/2015 39361 Allergy Injection 2 Or More Completed 05/07/2015 91684 Allergy Injection 2 Or More Completed 05/04/2015 72167 Allergy Injection 2 Or More Completed 04/16/2015 18272 Allergy Injection 2 Or More Completed 04/11/2015 55505 Allergy Injection 2 Or More Completed 04/06/2015 93266 Allergy Injection 2 Or More Completed 03/30/2015 13620 Allergy Injection 2 Or More Completed 03/23/2015 42751 Allergy Injection 2 Or More Completed 03/16/2015 76489 Allergy Injection 2 Or More Completed Encounters Type Date Location Provider CPT E/M Dx Office Visit 12/31/2017 9:30a COLLIN Crouch 84053 J30.89 J45.40 J30.1 Office Visit 11/26/2017 10:00a COLLIN Crouch 37587 J30.89 J30.1 J45.909 Office Visit 09/18/2017 1:30[place] [address] J01.90 Office Visit 05/04/2017 10:00a MARIANGEL Murry 63014 J30.1 J30.89 J45.40 T80.59xA Office Visit 02/06/2017 11:15a Dulce Maria Husain RPA-C 06726 J45.40 J30.1 J30.89 Office Visit 01/21/2017 4:30p Dulce Maria Husain RPA-C 57988 J45.41 Office Visit 10/17/2016 1:00p Dulce Maria Husain RPA-C 27298 J45.40 J45.990 J30.1 J30.89 Office Visit 03/03/2016 3:00p Dulce Maria Husain RPA-C 51249 T80.59xA Office Visit 06/01/2015 11:00a Dulce Maria Husain RPA-C 06641 J30.1 J30.89 J45.20 J45.990 Plan of Care Future Appointment(s):01/05/2018 8:40 am - Injection 1 at [facility]/15/2019 3 :00 pm - COLLIN Bass at [place]/16/2018 - COLLIN BassJ30.89 Other allergic msontnyzM85.40 Moderate persistent asthma, uncomplicatedComments: Patient to continue using Symbicort as prescribed daily for prophylaxis of his lungs and Ventolin for breakthrough chest symptoms. Patient to use Nasonex as prescribed for prophylaxis of his nose and Xyzal for breakthrough nasal symptoms. Advised patient to start using Nasonex daily as ragweed season is beginning. Advised patient to use Symbicort every day as prescribed. Warm salt water gargles may help postnasal drip. Saline nasal spray may help with nasal symptoms.J30.1 Allergic rhinitis due to pollen
--- OUTSIDE RECORDS SUMMARY | 2018-01-01 06:46 | XMS REPORT ---
:1975 External Reference #:[id number] [facility] Address [address], [address] [place] [address] Phone [phone] Care Team Providers Name Role Phone Kandi Mcdonnell M.D. 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 Primary Care Physician Unavailable Payers Type Date Identification Numbers Payment Provider Subscriber Commercial Policy Number: [id number] [facility] Erickson Zaldivar PayID: [id number] [address] [place] [address] Problems Date Description Provider Status Onset: 09/19/2015 [...] hours as needed for pain Reference #: [id number] Sulfamethoxazole/ Hx Tablets 800-160mg 60tab 1 tab [...] CPT Code Status Date Vaccine Lot # [id number] Given 02/06/2017 Pneumovax Injection [id number] Given 02/06/2017 Influenza Virus Vaccine, Quadrivalent, Slit Virus, [id number] Im Use 64679 Given 06/03/2016 Influenza Virus Vaccine Split Virus Use For [id number] Individual 3Yr Older Vital Signs Date Vital Result Comment 12/30/2017 BP Systolic Sitting Left Arm 124 mmHg BP Diastolic Sitting Left Arm 74 mmHg Body Temperature 96.4 F Heart Rate 72 /min Height 72 inches 6'0" Weight 201.50 lb BMI (Body Mass Index) 27.3 kg/m2 BSA (Body Surface Area) 2.14 m2 [place] body weight in kilograms 81 06/09/2017 BP Systolic Sitting Left Arm 106 mmHg BP Diastolic Sitting Left Arm 60 mmHg Height 72 inches 6'0" Weight 205.50 lb BMI (Body Mass Index) 27.9 kg/m2 BSA (Body Surface Area) 2.16 m2 [place] body weight in kilograms 81 05/04/2017 BP Systolic Sitting Left Arm 138 mmHg BP Diastolic Sitting Left Arm 72 mmHg Body Temperature 98.2 F Heart Rate 92 /min Height 72 inches 6'0" Weight 207.12 lb BMI (Body Mass Index) 28.1 kg/m2 BSA (Body Surface Area) 2.16 m2 [place] body weight in kilograms 81 04/21/2017 BP Systolic Sitting Left Arm 124 mmHg BP Diastolic Sitting Left Arm 72 mmHg Body Temperature 97.2 F Height 72 inches 6'0" Weight 210.00 lb BMI (Body Mass Index) 28.5 kg/m2 BSA (Body Surface Area) 2.18 m2 [place] body weight in kilograms 81 03/26/2017 BP Systolic Sitting Left Arm 126 mmHg BP Diastolic Sitting Left Arm 78 mmHg Height 72 inches 6'0" Weight 211.00 lb BMI (Body Mass Index) 28.6 kg/m2 BSA (Body Surface Area) 2.18 m2 [place] body weight in kilograms 81 03/13/2017 BP Systolic Sitting Left Arm 124 mmHg BP Diastolic Sitting Left Arm 78 mmHg Heart Rate 78 /min Respiratory Rate 18 /min Height 72 inches 6'0" Weight 213.00 lb BMI (Body Mass Index) 28.9 kg/m2 BSA (Body Surface Area) 2.19 m2 [place] body weight in kilograms 81 02/06/2017 BP Systolic Sitting Left Arm 126 mmHg BP Diastolic Sitting Left Arm 74 mmHg Body Temperature 98.2 F Heart Rate 70 /min Respiratory Rate 20 /min Height 72 inches 6'0" Weight 213.00 lb BMI (Body Mass Index) 28.9 kg/m2 BSA (Body Surface Area) 2.19 m2 [place] body weight in kilograms 81 09/11/2016 BP [...] kg/m2 BSA (Body Surface Area) 2.14 m2 [place] body weight in kilograms 81 09/19/2015 BP [...] Comment 05/18/[address] Tellez in [place], normal screening at 52 Encounters Type Date Location Provider CPT E/M Dx Office Visit 06/09/2017 Family Medicine Kandi Mcdonnell M.D. 40495 M54.5 2:45p Office Visit 05/04/2017 Family Medicine COLLIN Lui 54014 R35.0 2:45p Office Visit 04/21/2017 Family Mathew Mcdonnell M.D. 27449 R35.0 1:30p Office Visit 03/26/2017 Family Mathew Mcdonnell M.D. 92604 N20.2 2:45p Office Visit 03/13/2017 Family Mathew Mcdonnell M.D. 54604 R00.0 1:30p Office Visit 02/06/2017 Family MARIANGEL Ugarte 51874 M70.21 1:30p J45.30 Z23 Office Visit 09/11/2016 8:45a Family Medicine Kandi Mcdonnell M.D. 38759 L60.8 Office Visit 06/03/2016 1:45p Family [facility] MARIANGEL Serrano 40304 N20.0 Z23 Office Visit 09/19/2015 9:30a Family Mathew Mcdonnell M.D. 67907 G56.02 R06.83 J30.2 K57.90 Plan of Care 12/30/2017 - Kanid Kecia, M.D.R00.0 Tachycardia, unspecifiedComments:2nd episode of tachycardia and episode was prolongedreviewed EKG and labs from urgent care, no concernswill refer to cardiologyReferral:Felix Rivas MD, Cardiology/Phys/ Osteo
--- OUTSIDE RECORDS SUMMARY | 2018-01-01 06:46 | XMS REPORT ---
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 Primary Care Physician Unavailable Payers Type Date Identification Numbers Payment Provider Subscriber Commercial Policy Number: [id number] [facility] [place] Plan Erickson Zaldivar PayID: [id number] [address] [place] [address] Problems Date Description Provider Status Onset: 11/26/2017 [...] 2 puffs e) ler every 4 Simon [facility]- mcg/Act hours as needed. Levocetirizine 04/05 Active Tablets 5mg 30tab Take One Dihydrochloride s Tablet By Shane Rivas MD Mouth Every Evening Nasonex 03/15 Active Suspension 50mcg/Act 1unit [place] 2 Uma Paul s sprays in [place]ER each nostril by intranasa l route once daily Symbicort 03/15 Active Aerosol 160-4.5mc 10.2u Two Puffs g/Act nits Twice A Simon [facility]-C Day Prilosec OTC Active Tablets DR [...] - directed 01/17 Nystatin 08/05 Hx Suspension [id number] 150ml Swish and t/ML swallow Shane Rivas [...] Procedures Date CPT Code Description Status 11/26/2017 40669 Allergy Injection 2 Or More Completed 11/26/2017 98737 Nitric Oxide Gas Determination Completed 11/26/2017 55930 Nitric Oxide Gas Determination Completed 11/26/2017 97839 Bronchodilation Responsiveness Spirometry Pre/Post Completed Bronchodil Adm 11/26/2017 48404 Bronchodilation Responsiveness Spirometry Pre/Post Completed Bronchodil Adm 10/15/2017 24411 Allergy Injection 2 Or More Completed 09/10/2017 67085 Allergy Antigens Single Or Multiple Completed 09/04/2017 47883 Allergy Injection 2 Or More Completed 08/07/2017 90558 Allergy Injection 2 Or More Completed 07/10/2017 93085 Allergy Injection 2 Or More Completed 06/26/2017 71166 Allergy Injection 2 Or More Completed 06/12/2017 31388 Allergy Injection 2 Or More Completed 05/29/2017 35417 Allergy Injection 2 Or More Completed 05/04/2017 74196 Allergy Injection 2 Or More Completed 05/04/2017 37827 Nitric Oxide Gas Determination Completed 05/04/2017 70263 Nitric Oxide Gas Determination Completed 05/04/2017 10349 Bronchodilation Responsiveness Spirometry Pre/Post Completed Bronchodil Adm 05/04/2017 39125 Bronchodilation Responsiveness Spirometry Pre/Post Completed Bronchodil Adm 04/03/2017 70233 Allergy Injection 2 Or More Completed 02/20/2017 34400 Allergy Injection 2 Or More Completed 02/06/2017 74383 Allergy Injection 2 Or More Completed 02/06/2017 77521 Nitric Oxide Gas Determination Completed 01/21/2017 97978 Nitric Oxide Gas Determination Completed 01/09/2017 03648 Allergy Injection 2 Or More Completed 12/26/2016 52876 Allergy Injection 2 Or More Completed 12/05/2016 01749 Allergy Injection 2 Or More Completed 11/21/2016 23480 Allergy Injection 2 Or More Completed 11/07/2016 13329 Allergy Injection 2 Or More Completed 10/22/2016 22449 Allergy Antigens Single Or Multiple Completed 10/17/2016 51668 Allergy Injection 2 Or More Completed 10/17/2016 42851 Nitric Oxide Gas Determination Completed 10/17/2016 56789 Bronchodilation Responsiveness Spirometry Pre/Post Completed Bronchodil Adm 10/03/2016 62316 Allergy Injection 2 Or More Completed 09/19/2016 22722 Allergy Injection 2 Or More Completed 09/05/2016 00247 Allergy Injection 2 Or More Completed 08/20/2016 77883 Allergy Injection 2 Or More Completed 08/15/2016 37973 Allergy Injection 2 Or More Completed 08/04/2016 35091 Allergy Injection 2 Or More Completed 07/21/2016 75257 Allergy Injection 2 Or More Completed 07/09/2016 82734 Allergy Injection 2 Or More Completed 06/20/2016 53960 Allergy Injection 2 Or More Completed 05/23/2016 10885 Allergy Injection 2 Or More Completed 05/05/2016 68829 Allergy Injection 2 Or More Completed 04/18/2016 46172 Allergy Injection 2 Or More Completed 03/12/2016 23464 Allergy Injection 2 Or More Completed 03/03/2016 82439 Education/Training PT Self-Management Each 30Minutes Completed Indiv PT 02/29/2016 03039 Allergy Injection 2 Or More Completed 02/15/2016 11741 Allergy Injection 2 Or More Completed 01/30/2016 64409 Allergy Injection 2 Or More Completed 01/18/2016 50305 Allergy Injection 2 Or More Completed 01/04/2016 24952 Allergy Injection 2 Or More Completed 12/21/2015 24423 Allergy Injection 2 Or More Completed 12/07/2015 98850 Allergy Injection 2 Or More Completed 11/16/2015 58721 Allergy Injection 2 Or More Completed 11/02/2015 36867 Allergy Injection 2 Or More Completed 10/19/2015 94176 Allergy Injection 2 Or More Completed 10/16/2015 18794 Allergy Antigens Single Or Multiple Completed 10/05/2015 33187 Allergy Injection 2 Or More Completed 09/21/2015 52708 Allergy Injection 2 Or More Completed 08/31/2015 45833 Allergy Injection 2 Or More Completed 08/17/2015 78657 Allergy Injection 2 Or More Completed 07/27/2015 04133 Allergy Injection 2 Or More Completed 07/13/2015 16257 Allergy Injection 2 Or More Completed 06/15/2015 02819 Allergy Injection 2 Or More Completed 06/01/2015 54159 Allergy Injection 2 Or More Completed 06/01/2015 29249 Bronchodilation Responsiveness Spirometry Pre/Post Completed Bronchodil Adm 05/25/2015 46704 Allergy Injection 2 Or More Completed 05/16/2015 26924 Allergy Injection 2 Or More Completed 05/07/2015 63903 Allergy Injection 2 Or More Completed 05/04/2015 18011 Allergy Injection 2 Or More Completed 04/16/2015 74462 Allergy Injection 2 Or More Completed 04/11/2015 30253 Allergy Injection 2 Or More Completed 04/06/2015 07050 Allergy Injection 2 Or More Completed 03/30/2015 57099 Allergy Injection 2 Or More Completed 03/23/2015 95082 Allergy Injection 2 Or More Completed 03/16/2015 03966 Allergy Injection 2 Or More Completed Encounters Type Date Location Provider CPT E/M Dx Office Visit 11/26/2017 10:00a COLL[facility] Crouch 72554 J30.89 J30.1 J45.909 Office Visit 09/18/2017 1:[place] [address] J01.90 Office Visit 05/04/2017 10:00a SPIKE MurryP 63818 J30.1 J30.89 J45.40 T80.59xA Office Visit 02/06/2017 11:15a Dulce Maria Husain RPA-C 41490 J45.40 J30.1 J30.89 Office Visit 01/21/2017 4:30p Dulce Maria Husain RPA-C 30373 J45.41 Office Visit 10/17/2016 1:00p Dulce Maria Husain RPA-C 55526 J45.40 J45.990 J30.1 J30.89 Office Visit 03/03/2016 3:00p Dulce Maria Husain RPA-C 91893 T80.59xA Office Visit 06/01/2015 11:00a Dulce Maria Husain RPA-C 39762 J30.1 J30.89 J45.20 J45.990 Plan of Care Future Appointment(s):06/01/2018 3:00 pm - CO[facility] Bass at [place]
[2018-01-01 07:53] LABS: Urine Appearance Clear; Urine Blood Negative (Negative); Urine Color Straw; Urine Ketones Negative (Negative); Urine Protein Negative (Negative); Urine Specific Gravity 1.003 (1.010-1.030); Urine Urobilinogen Negative (Negative)
[2018-01-01 07:58] LABS: ABS Basophils 0.1 10^3/ul (0-0.2); ABS Eosinophils 0.1 10^3/ul (0-0.6); ABS Lymphocytes 1.6 10^3/ul (1.0-4.8); ABS Monocytes 0.7 10^3/ul (0-0.8); ABS Neutrophils 6.9 10^3/ul (1.5-7.7); ABS Nucleated RBC 0 10^3/ul; Eosinophil % 1.2 % (0-6); Hematocrit 45 % (42-52); Hemoglobin 15.8 g/dl (14.0-18.0); Lymphocyte % 16.8 % (25-47); Mean Corpuscular HGB Conc 35 g/dl (31-36); Mean Corpuscular Hemoglobin 30 pg (27-31); Mean Corpuscular Volume 87 fL (80-94); Mean Platelet Volume 7.5 um3 (7.4-10.4); Nucleated Red Blood Cells % 0.1; Platelet Count 189 10^3/ul (150-450); Red Blood Count 5.24 10^6/ul (4.00-5.40); Red Cell Distribution Width 13 % (10.5-15); White Blood Count 9.3 10^3/ul (3.5-10.8)
--- NOTE | 2018-01-01 08:05 | RAD ---
INDICATION: Productive cough. Dizzy spell. History of asthma. COMPARISON: February 13, 2017 TECHNIQUE: Dual energy PA and routine lateral views of the chest were obtained. REPORT: Mildly elevated lung volumes. Unchanged mild prominence of the interstitial markings. No focal pulmonary lesion, compelling alveolar consolidation, pleural effusion, pneumothorax. The heart, pulmonary vasculature, and mediastinal contours are unremarkable. Mild S-shaped curve of the spine convex to the RIGHT at the midthoracic and to the LEFT at the thoracic lumbar junction. IMPRESSION: #. Stigmata of probable obstructive pulmonary disease. #. No acute cardiopulmonary process evident.
[2018-01-01 08:12] LABS: INR 0.9 (0.77-1.02)
[2018-01-01 08:21] LABS: EGFR Non-African American 68.4 (>60)
[2018-01-01 09:53] VITALS: BP 139/91
== END 2018-01-01 09:55 | disposition home or self-care (01) ==
LOC: ED 06:03
DX: R42 Dizziness and giddiness (principal); R00.2 Palpitations; J45.909 Unspecified asthma, uncomplicated; Z81.1 Family history of alcohol abuse and dependence; Z82.49 Family history of ischemic heart disease and other diseases of the circulatory system; Z83.3 Family history of diabetes mellitus
CPT/HCPCS: 36415; 71046; 80053; 81003; 83605; 83735; 84443; 84484; 85025; 85610; 85730; 86140; 86308; 93005; 99283

== ENCOUNTER 2019-04-09 17:50 | Emergency (ER) | payer BC ==
[2019-04-09 18:09] VITALS: BP 133/78
--- NOTE | 2019-04-09 18:26 | UC ---
Dizzy HPI HPI Summary: 43-year-old male comes with a chief complaint of dizziness/lightheadedness. Around 4:00 patient started having some dizziness which he describes as lightheadedness. In the hour prior to this he had taken his levalbuterol. Also felt some palpitations and nausea. He reports being anxious with these symptoms. He does feel improved in comparison to when the symptoms started. Patient reports that he's had the same symptoms multiple times. And 2016 he was evaluated in the emergency department for the same symptoms. He reports that in the last year he's had a Holter monitor and also a cardiac stress test. Is being treated for his PVCs and hypertension. He was taking albuterol in the past and that cause these symptoms frequently. Since switching to the level albuterol it's more rare that he gets these symptoms. No complaint of any chest pain. - History Of Current Complaint Chief Complaint: UCDizziness Stated Complaint: DIZZINESS/NAUSE Time Seen by Provider: 04/09/19 17:53 Pain Intensity: 0 - Allergies/Home Medications Allergies/Adverse Reactions: Allergies Allergy/AdvReac Type Severity Reaction Status Date / Time environmental Allergy Eyes Uncoded 01/01/18 07:20 Itchy/Swollen/Red/Watery Home Medications: Home Medications Montelukast Sodium TAB* [Singulair TAB*] 10 mg PO BEDTIME 04/09/19 [History Confirmed 04/09/19] PMH/Surg Hx/FS Hx/Imm Hx Previously Healthy: Yes Other Cardiovascular History: pvc Other History Of: Negative For: Anticoagulant Therapy - Surgical History Surgical History: Yes Surgery Procedure, Year, and Place: APPY AT AGE 4 - Family History Known Family History: Positive: Cardiac Disease, Diabetes - Social History Alcohol Use: None Substance Use Type: None Smoking Status (MU): Never Smoked Tobacco Review of Systems All Other Systems Reviewed And Are Negative: Yes Constitutional: Positive: Other - see hpi Skin: Positive: Negative Eyes: Positive: Negative ENT: Positive: Negative Respiratory: Positive: Negative Cardiovascular: Positive: Palpitations Gastrointestinal: Positive: Nausea Motor: Positive: Negative Neurovascular: Positive: Negative Musculoskeletal: Positive: Negative Neurological: Positive: Negative Psychological: Positive: Anxious Is Patient Immunocompromised?: No Physical Exam Triage Information Reviewed: Yes Appearance: Well-Appearing, No Pain Distress, Well-Nourished Vital Signs: Initial Vital Signs Temp 99.3 F 04/09/19 18:03 Pulse 76 04/09/19 18:03 Resp 18 04/09/19 18:03 BP 133/78 04/09/19 18:03 Pulse Ox 100 04/09/19 18:03 Vital Signs Reviewed: Yes Eye Exam: Normal Eyes: Positive: Conjunctiva Clear Neck: Positive: Supple Respiratory: Positive: Lungs clear, Normal breath sounds, No respiratory distress Cardiovascular: Positive: RRR Musculoskeletal: Positive: Strength Intact, ROM Intact, No Edema - No calf tenderness. Neurological: Positive: Alert, Muscle Tone Normal Psychological: Positive: Age Appropriate Behavior Skin Exam: Normal Diagnostics - EKG Cardiac Rate: NL - AT 1758 Cardiac Rhythm: Sinus: Normal - 72BPM Ectopy: None ST Segment: Normal Dizzy Course/Dx - Course Course Of Treatment: I discussed the EKG with the patient. Patient reports she's had these symptoms multiple times in the past and that he has had an echocardiogram all to monitor and a cardiac stress test in evaluation of these symptoms. EKG and vital signs are normal. We discussed evaluation in the emergency department. Plan at this time is to follow-up with his doctor and if worse Get Evaluated in the emergency department. - Differential Dx/Diagnosis Provider Diagnosis: Dizziness, Lightheadedness Discharge ED - Sign-Out/Discharge Documenting (check all that apply): Patient Departure All imaging exams completed and their final reports reviewed: No Studies - Discharge Plan Condition: Stable Disposition: HOME Patient Education Materials: Lightheadedness (ED), Dizziness (ED) Referrals: Keyon Hayes MD [Primary Care Provider] - Additional Instructions: FOLLOW UP WITH YOUR DOCTOR IF NOT COMPLETELY IMPROVED. GET REEVALUATED SOONER IF NOT IMPROVING OR GO TO THE EMERGENCY DEPARTMENT IF WORSE OR ANY QUESTIONS OR CONCERNS. - Billing Disposition and Condition Condition: STABLE Disposition: Home
--- OUTSIDE RECORDS SUMMARY | 2019-04-09 18:37 | XMS REPORT | Continuity of Care Document ---
:1975 External Reference #:[id number] Author Name Tashi Tellez MD Address [facility] [place] [address] Problems Active Problems Provider Date Epigastric pain Michelle Merritt PA-C Onset: 09/06/2018 Chest pain Michelle Merritt PA-C Onset: 09/06/2018 Gastroesophageal reflux disease Michelle Merritt PA-C Onset: 09/06/2018 Diverticulitis of colon Tashi Tellez MD Onset: 09/28/2013 Essential hypertension Michelle Merritt PA-C Onset: 09/13/2018 Asthma without status asthmaticus Michelle Merritt PA-C Onset: 2018 Social History Type Date Description Comments Sex Unknown Tobacco Use Start: Unknown Patient has never smoked Smoking Status Reviewed: 03/17/19 Patient has never smoked Allergies, Adverse Reactions, Alerts Description No Known Drug Allergies Medications Active Medications SIG Qnty Indications Ordering Provider Date Omeprazole Take One Capsule 30caps K21.9 Tashi Tellez, 09/06/2018 40mg Capsules By Mouth Every MD DR Day 30 Minutes Before A Meal Nasonex Unknown 50mcg/Act Suspension Symbicort Unknown 160-4.5mcg/Act Aerosol Levalbuterol Tartrate Inhale Two Puffs Unknown By Mouth Every 4 45mcg/Act Aerosol Hours as Needed Bystolic Take One Tablet Unknown 5mg Tablets By Mouth Twice A Day Aaliyah Allergy 1 by mouth every Unknown 180mg day Tablets Montelukast Sodium Unknown 10mg Tablets Immunizations Description No Information Available Vital Signs Date Vital Result Comment 03/17/2019 2:41pm Height 72 inches 6'0" Weight 202.00 lb BP Systolic 114 mmHg BP Diastolic 68 mmHg Heart Rate 62 /min BMI (Body Mass Index) 27.4 kg/m2 09/06/2018 1:06pm Height 72 inches 6'0" Weight 208.00 lb BP Systolic 115 mmHg BP Diastolic 73 mmHg Heart Rate 56 /min BMI (Body Mass Index) 28.2 kg/m2 Results Test Acquired Date Facility Test Result H/L Range Note Laboratory test 09/30/2018 [facility] Surgical SEE RESULT 1, 2 finding Interface Order BELOW Laboratory test 09/30/2018 [facility] Clotest SEE RESULT 3, 4 finding BELOW 1 [id number] SEE RESULT BELOW Name: ADRIANE DURAN : [address]: Tashi Tellez MD Acct: [id number] Unit: [id number] AGE: 43 Location: [facility] Re09/30/18 SEX: M Status: DEP REF SPEC: [id number] ZULEMA: 09/30/18-14[address] [facility] [address]: Tashi Tellez MD REQ: [id number] RECD: 09/30/187836 STATUS: MILE JOAQUIN DR: Keyon Hayes MD _ ORDERED: LEVEL 4 COMMENTS: [id number] FINAL DIAGNOSIS Gastroesophageal junction, biopsy: -- Gastroesophageal junction mucosa with chronic inflammation and nonspecific mild reactive glandular and squamous epithelial changes. -- No goblet cell/intestinal metaplasia or dysplasia identified. -- No specific features of reflux esophagitis identified. 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 Pylori, biopsy; duodenum - normal; hiatal hernia GROSS DESCRIPTION The specimen is received in formalin labeled, Biopsy [place], and consists of a 0.4 x 0.3 x 0.1 cm jules-white irregular soft tissue fragment which is submitted entirely in one cassette. CONTINUED ON NEXT PAGE DEPARTMENT OF PATHOLOGY, [address] [place] [address] Cristian Bustamante M.D. Director [facility] # [id number] RUN DATE: 10/04/18 [facility] LAB LIVE PAGE 2 Patient: ADRIANE DURAN [id number] (Continued) GROSS DESCRIPTION (Continued) Signed by and Reported on: Cristian Bustamante MD [facility] END OF REPORT DEPARTMENT OF PATHOLOGY, [address] [place] [address] Cristian Bustamante M.D. Director [facility] # [id number] SEE RESULT BELOW Name: RENEEADRIANE : [address]: Tashi Tellez MD Acct: [id number] Unit: [id number] AGE: 43 Location: [facility] Re09/30/18 SEX: M Status: DEP REF SPEC: [id number] ZULEMA: 09/30/18-[address] [facility] [address]: Tashi Tellez MD REQ: [id number] RECD: 09/30/184960 STATUS: MILE JOAQUIN DR: Keyon Hayes MD _ ORDERED: LEVEL 4 COMMENTS: [id number] FINAL DIAGNOSIS Gastroesophageal junction, biopsy: -- Gastroesophageal junction mucosa with chronic inflammation and nonspecific mild reactive glandular and squamous epithelial changes. -- No goblet cell/intestinal metaplasia or dysplasia identified. -- No specific features of reflux esophagitis identified. 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 Pylori, biopsy; duodenum - normal; hiatal hernia GROSS DESCRIPTION The specimen is received in formalin labeled, Biopsy [place], and consists of a 0.4 x 0.3 x 0.1 cm jules-white irregular soft tissue fragment which is submitted entirely in one cassette. CONTINUED ON NEXT PAGE DEPARTMENT OF PATHOLOGY, [address] [place] [address] Cristian Bustamante M.D. Director [place] # [id number] RUN DATE: 10/04/18 [facility] LAB LIVE PAGE 2 Patient: ADRIANE DURAN [id number] (Continued) GROSS DESCRIPTION (Continued) Signed by and Reported on: Cristian Bustamante MD [id number] END OF REPORT DEPARTMENT OF PATHOLOGY, [address] [place] [address] Cristian Bustamante M.D. Director [facility] # [id number] 3 [id number] SEE RESULT BELOW Name: RENEEADRIANE Vicenta : [address]: Tashi Tellez MD Acct: [id number] Unit: [id number] AGE: 43 Location: [facility] Re09/30/18 SEX: M Status: REG REF SPEC: [id number] ZULEMA: 09/30/18-[address] [facility] [address]: Tashi Tellez MD REQ: [id number] RECD: 09/30/184815 STATUS: COMP CHIPHR DR: Keyon Hayes MD _ SOURCE: GAS ANTRUM SPDESC: ORDERED: Clotest COMMENTS: [id number] Procedure Result Reported Site Clotest Final 10/01/18- 722 ML Clotest Negative * [facility] - [facility] . END OF REPORT DEPARTMENT OF PATHOLOGY, [address] [place] [address] Cristian Bustamante M.D. Director [facility] # [id number] SEE RESULT BELOW Name: ADRIANE DURAN : [address]: Tashi Tellez MD Acct: [id number] Unit: [id number] AGE: 43 Location: [facility] Re09/30/18 SEX: M Status: REG REF SPEC: [id number] ZULEMA: 09/30/18-142 [facility] [address]: Tashi Tellez MD REQ: [id number] RECD: 09/30/18 STATUS: YOVANA JOAQUIN DR: Keyon Hayes MD _ SOURCE: GAS ANTRUM SPDESC: ORDERED: Clotest COMMENTS: [id number] Procedure Result Reported Site Clotest Final 10/01/18- 78 ML Clotest Negative * ML - [facility] Lab . END OF REPORT DEPARTMENT OF PATHOLOGY, [address] [place] [address] Cristian Bustamante M.D. Director [facility] # [id number] Procedures Date Code Description Status 09/30/2018 70313 Moderate Sedation Services; Same Phys Each Additional 15 Completed Mins 09/30/2018 34536 Moderate Sedation Services; Same Phys Intl 15 Mins; PT >= Completed 5 Years 09/30/2018 18849 EGD+Biopsy Single Or Multiple Completed Medical Devices Description No Information Available Encounters Description No Information Available Assessments Date Code Description Provider 03/17/2019 R10.13 Epigastric pain Tashi Tellez MD 09/30/2018 K21.9 Gastro-esophageal reflux disease without Tashi Tellez MD esophagitis 09/30/2018 K44.9 Diaphragmatic hernia without obstruction or Tashi Tellez MD gangrene Plan of Treatment 03/17/2019 - Tashi Tellez, MDR10.13 Epigastric painComments:I had a long discussion with the patient regarding his elevated lipase. We discussed the possibilities of a viral gastritis, pancreatitis, peptic ulcer disease. Given the fact he feels so well just 48 hours later I do wonder if he had a viral illness that caused his elevated lipase. I doubt the other etiologies. He is 100% back to normal at this point. I would like to repeat labs to confirm thatthey are normal if so no further workup necessary. No alarm symptoms Functional Status Description No Information Available Mental Status Description No Information Available Referrals Description No Information Available
--- OUTSIDE RECORDS SUMMARY | 2019-04-09 18:37 | XMS REPORT | Continuity of Care Document ---
:1975 External Reference #:[id number] Author Name Guero Calderón PA (transmitted by agent of provider Felix Rivas) Address [address], [address] [place] [address] Care Team Providers Name Role Phone Keyon Hayes MD - Family Medicine Care Team Information [facility] Department Supervisor [phone] Problems Active Problems Provider Date Allergic rhinitis Kandi Mcdonnell M.D. Onset: 09/19/2015 Gastroesophageal reflux disease Kandi Mcdonnell M.D. Onset: 09/19/2015 Diverticular disease of colon Kandi Mcdonnell M.D. Onset: 09/19/2015 Sleep apnea Kandi Mcdonnell M.D. Onset: 12/19/2015 Asthma Stef Matute FNP Onset: 02/06/2017 Social History Type Date Description Comments Sex Unknown Tobacco Use Start: Unknown Never Smoked Cigarettes Smoking Status Reviewed: 04/01/19 Never Smoked Cigarettes ETOH Use Denies alcohol use Tobacco Use Start: Unknown Patient has never smoked Allergies, Adverse Reactions, Alerts Description No Known Drug Allergies Medications Active Medications SIG Qnty Indications Ordering Date Provider Bystolic Take One Tablet By Felix Pratt MD 08/13/2018 5mg Tablets Mouth Twice A Day Symbicort 2 puff once a day Unknown 160-4.5mcg/Act Aerosol Levalbuterol Tartrate take 2 puffs every 15gm Unknown 4 hours as needed 45mcg/Act Aerosol for shortness of breath. Nasonex 2 sprays each Unknown 50mcg/Act nostril every day Suspension Prilosec 1 tab PO Q daily Unknown 40mg Capsules DR Fischer Allergy 1 by mouth daily Unknown 60mg Tablets Singulair 1 by mouth every Unknown 10mg Tablets day Immunizations CPT Code Status Date Vaccine Lot # [id number] Given 04/15/2018 Influenza Virus Vaccine, Quadrivalent, 36 Mos+, [id number] .[id number] 02856 Given 02/06/2017 Pneumovax Injection [id number] Given 02/06/2017 Influenza Virus Vaccine, Quadrivalent, Slit Virus, [id number] [place] Use [address] Given 06/03/2016 Influenza Virus Vaccine Split Virus Use For [id number] Individual 3Yr Older Vital Signs Date Vital Result Comment 04/01/2019 2:40pm BP Systolic Sitting Right Arm 126 mmHg BP Diastolic Sitting Right Arm 78 mmHg Heart Rate 70 /min Respiratory Rate 16 /min Height 72 inches 6'0" Weight 206.00 lb BMI (Body Mass Index) 27.9 kg/m2 BSA (Body Surface Area) 2.16 m2 [place] body weight in kilograms 81 kg O2 % BldC Oximetry 98 % ra 09/27/2018 3:29pm BP Systolic Sitting Left Arm 102 mmHg BP Diastolic Sitting Left Arm 78 mmHg Heart Rate 72 /min Respiratory Rate 16 /min Height 72 inches 6'0" Weight 207.00 lb BMI (Body Mass Index) 28.1 kg/m2 BSA (Body Surface Area) 2.16 m2 [place] body weight in kilograms 81 kg O2 % BldC Oximetry 97 % Ra Results Test Acquired Date Facility Test Result H/L Range Note Laboratory test 09/30/2018 [facility] Surgical SEE RESULT 1, 2 finding [phone] Interface BELOW Order Laboratory test 09/30/2018 [facility] Clotest SEE RESULT 3, 4 finding [phone] BELOW 1 [id number] 2 SEE RESULT BELOW Name: ADRIANE DURAN : [address]: Tashi Tellez MD Acct: [id number] Unit: [id number] AGE: 43 Location: [facility] Re09/30/18 SEX: M Status: DEP REF SPEC: [id number] ZULEMA: 09/30/18-[address]: Tashi Tellez MD REQ: [id number] RECD: 09/30/18 STATUS: MILE JOAQUIN DR: Keyon Hayes MD _ ORDERED: LEVEL 4 COMMENTS: [id number] FINAL DIAGNOSIS Gastroesophageal junction, biopsy: -- Gastroesophageal [...] CONTINUED ON NEXT PAGE DEPARTMENT OF PATHOLOGY, [address] [place] [address] Cristian Bustamante M.D. Director [facility] # [id number] RUN DATE: 10/04/18 [facility] LIVE PAGE 2 Patient: ADRIANE DURAN [id number] (Continued) GROSS DESCRIPTION (Continued) Signed by and Reported on: Cristian Bustamante MD 1111 END OF REPORT DEPARTMENT OF PATHOLOGY, [address] [place] [address] Cristian Bustamante M.D. Director [facility] # [id number] 3 [id number] 4 SEE RESULT BELOW Name: ADRIANE DURAN : [address]: Tashi Tellez MD Acct: [id number] Unit: [id number] AGE: 43 Location: [facility] Re09/30/18 SEX: M Status: REG REF SPEC: [id number] ZULEMA: 09/30/18-[address] [facility] [address]: Tashi Tellez MD REQ: [id number] RECD: 09/30/18 STATUS: COMP CHIPHR DR: Keyon Hayes MD _ SOURCE: GAS ANTRUM SPDESC: ORDERED: Clotest COMMENTS: [id number] Procedure Result Reported Site Clotest Final 10/01/18- 722 ML Clotest Negative * ML - Main Lab . END OF REPORT DEPARTMENT OF PATHOLOGY, [address] [place] [address] Cristian Bustamante M.D. Director [facility] # [id number] Procedures Date Code Description Status 04/01/2019 66433 EKG-Tracing And Report Completed 05/18/2013 06980417 Colonoscopy Completed Medical Devices Description No Information Available Encounters Type Date Location Provider Dx Diagnosis Office Visit 04/01/2019 Cardiology Office Guero Calderón I49.3 Ventricular premature 2:40p B., PA depolarization I10 Essential (primary) hypertension K21.9 Gastro-esophageal reflux disease without esophagitis G47.33 Obstructive sleep apnea (adult) (pediatric) Assessments Date Code Description Provider 04/01/2019 I49.3 Ventricular premature depolarization Guero Calderón, PA 04/01/2019 I10 Essential (primary) hypertension Guero Calderón, PA 04/01/2019 K21.9 Gastro-esophageal reflux disease without Guero Calderón , PA esophagitis 04/01/2019 G47.33 Obstructive sleep apnea (adult) (pediatric) Guero Calderón, PA Plan of Treatment 04/01/2019 - Guero Calderón, PAI49.3 Ventricular premature depolarizationComments:Monitor. He will try taking the Bystolic at bedtime to see if this helps reduce frequency of headaches.I10 Essential (primary) hypertensionComments:BP goal is <130/80 mmHg. No changes.K21.9 Gastro- esophageal reflux disease without kqlugfsgcnbO00.33 Obstructive sleep apnea ( adult) (pediatric)Comments:Encouraged compliance with the CPAP.AllComments:He will be moving to [place] and plans to establish care there.Follow up:We will see the patient on a PRN basis from this point. We would be happy to see them again as deemed necessary. Functional Status Functional Condition Comment Date Status Glasses Active Independent with all ADL's Active Mental Status Description No Information Available Referrals Description No Information Available
== END 2019-04-09 18:30 | disposition home or self-care (01) ==
LOC: UCCORT 17:50
DX: R42 Dizziness and giddiness (principal); I10 Essential (primary) hypertension; I49.3 Ventricular premature depolarization; Z79.899 Other long term (current) drug therapy; Z91.09 Other allergy status, other than to drugs and biological substances
CPT/HCPCS: 93005; 99211; G0463